=== PATIENT | male | born 1960 | race Caucasian/White ===

== ENCOUNTER → 2017-02-14 | Outpatient (CLI) | payer MEDICARE, OTHER ==
--- NOTE | 2017-02-15 10:08 | RADIOLOGY REPORT PS360 ---
MRI-LOW EXT ANY JOINT W/O-LT HISTORY: Left knee pain along the medial lateral aspect. Limited range of motion LEFT KNEE PAIN, osteochondromatosis ORDERING PHYSICIAN: John Randolph MD PATIENT AGE: 56 years COMPARISON: Radiograph at 01/29/2017 TECHNIQUE: Standard multiplanar multiecho sequences are performed without contrast. FINDINGS: The study is somewhat limited secondary to motion artifact. Fine detail is compromised due to the motion. The patient has known osteochondromatosis as seen on the previous radiograph with multiple osteochondromas of the distal femur, proximal tibia, and proximal fibula The cruciate ligaments appear intact. The collateral ligaments appear intact. The quadriceps tendon and patellar tendon appears intact. There is no convincing evidence of a meniscal tear. There is a small knee joint effusion. 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 IMPRESSION: 1. Limited exam secondary to motion artifact. 2. No evidence of internal derangement 3. 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
== END ==
LOC: RAD 02-13 09:45
DX: M25.562 Pain in left knee (principal)